=== PATIENT | male | born 1965 | race Caucasian/White ===

== ENCOUNTER 2021-01-07 12:46 | Emergency (ER) | payer MEDICAID ==
[~2021-01-07] VITALS: Ht 193 cm; Wt 163.3 kg
--- NOTE | 2021-01-07 13:05 | NUR ---
Dr Wright at bedside for MSE.
[2021-01-07] MEDS ORDERED: NEOMY/BACITRA/POLYMYXIN B OINT UD PACKET TP ONE ×2 (13:15→13:32)
--- NOTE | 2021-01-07 13:30 | NUR ---
Skin staple removed, as ordered. Pt tolerated procedure. No bleeding or wound evisceration noted. Cleansed with ns, pat dry and applied triple antibiotic ointment. Covered with dry gauze. Advised patient that air dry is okay at home. Written and verbal after care instructions given. Patient verbalizes understanding of instructions. Stressed follow up with foot doctor, with referral from MD handed out to patient, or return to ER for worsening s/s. Patient discharged to home in stable condition, ambulated out of ED in steady gait.
[2021-01-07 13:50] VITALS: BP 159/87
== END 2021-01-07 13:30 | disposition home or self-care (01) ==
LOC: ER 12:46
DX: S91.112D Laceration without foreign body of left great toe without damage to nail, subsequent encounter (principal); X58.XXXD Exposure to other specified factors, subsequent encounter; E11.9 Type 2 diabetes mellitus without complications
CPT/HCPCS: A4663